=== PATIENT | male | born 1960 | race Caucasian/White ===

== ENCOUNTER 2017-06-07 09:53 | Emergency (ER) | payer BC ==
--- NOTE | 2017-06-07 10:18 | EDM.PDOC ---
ED HPI GENERAL MEDICAL PROBLEM - General Chief Complaint: Lower Extremity Injury/Pain Stated Complaint: Right hip pain; right knee pain Time Seen by Provider: 06/07/17 09:56 Source of Information: Reports: Patient, Family, RN, RN Notes Reviewed History Limitations: Reports: No Limitations - History of Present Illness INITIAL COMMENTS - FREE TEXT/NARRATIVE: Patient presents to the ED at [facility] complaining of right hip pain, right lower lateral thigh pain, and right knee pain. Patient states he recently had a right NEAL on 05/31/[address] Doc Palacios. No issues with surgery. Patient was able to be discharged home with physical therapy. Patient attended his first therapy session on 06/05/2017. Patients states on that date is when his pain started. In reviewing the therapists notes, his physical therapy was uneventful and patient was able to participate in all activities. Patient denies any injury or trauma. Patient denies any numbness, tingling, or paresthesia of any extremity. Patient is able to ambulate with a walker. Onset Date: 06/05/17 Right Hip Pain Score (Numeric/FACES): 5 - Related Data Allergies Allergy/AdvReac Type Severity Reaction Status Date / Time No Known Allergies Allergy Verified 06/07/17 10:10 Home Meds: Home Meds Acetaminophen/HYDROcodone [[place] 325-5 MG] 1 tab Q4H PRN 06/07/17 [History] Review of Systems - Review of Systems Review Of Systems: See Below Constitutional: Denies: Chills, Fever, Weakness Respiratory: Denies: Shortness of Breath, Cough Cardiovascular: Denies: Chest Pain, Palpitations Musculoskeletal: Reports: Muscle Pain, Muscle Stiffness, Other (Right hip pain) Skin: Reports: No Symptoms Neurological: Reports: No Symptoms. Denies: Numbness, Paresthesia, Tingling ED EXAM, GENERAL - Physical Exam Exam: See Below Exam Limited By: No Limitations General Appearance: Alert, No Apparent Distress Respiratory/Chest: No Respiratory Distress, Lungs Clear, Normal Breath Sounds Cardiovascular: Normal Peripheral Pulses, Regular Rate, Rhythm Peripheral Pulses: 2+: Radial (L), Radial (R) Extremities: Normal Inspection, Limited Range of Motion (mild pain) Neurological: Alert, Oriented Skin Exam: Warm, Dry, Normal Color, No Rash, Wound/Incision (dressing intact, right lateral hip s/p NEAL) Course - Vital Signs Last Recorded V/S: Last Vital Signs Temp 36.8 C 06/07/17 09:53 Pulse 89 06/07/17 09:53 Resp 16 06/07/17 09:53 BP 109/80 06/07/17 09:53 Pulse Ox - Orders/Labs/Meds Orders: Active Orders 24 hr Category Date Time Status Hip Min 2V or 3V Rt [CR] Stat Exams 06/07/17 10:03 Taken Knee 1V or 2V Rt [CR] Stat Exams 06/07/17 10:04 Taken - Radiology Interpretation Free Text/Narrative:: Hip Right 2-3V: No plain film evidence of loosening Knee Right 1-2V: Chronic patellar tendinitis See scanned reports in EMR Departure - Departure Time of Disposition: 11:27 Disposition: Home, Self-Care 01 Condition: Good Clinical Impression: Right hip pain, Status post total hip replacement, right - Discharge Information Instructions: Hip Pain, Total Hip Replacement Referrals: [Ordering Only Provider] - Forms: ED Department Discharge Additional Instructions: 1. Stay well hydrated and rest 2. Use pain medications as needed 3. Continue with physical therapy 4. Call your surgeon for any problems 5. Xray were all normal - Problem List Review Problem List Initiated/Reviewed/Updated: Yes - My Orders Last 24 Hours: My Active Orders 06/07/17 10:03 Hip Min 2V or 3V Rt [CR] Stat 06/07/17 10:04 Knee 1V or 2V Rt [CR] Stat - Assessment/Plan Last 24 Hours: My Active Orders 06/07/17 10:03 Hip Min 2V or 3V Rt [CR] Stat 06/07/17 10:04 Knee 1V or 2V Rt [CR] Stat
== END 2017-06-07 11:35 | disposition home or self-care (01) ==
LOC: VM.ED 09:53
DX: M25.551 Pain in right hip (principal); G89.18 Other acute postprocedural pain; Z96.641 Presence of right artificial hip joint
CPT/HCPCS: 73560-RT; 99283

== ENCOUNTER 2018-12-01 12:29 | Emergency (ER) | payer BC ==
[2018-12-01] MEDS ORDERED: Albuterol/Ipratropium 3.0-0.5 MG/3 ML Neb Soln NEB ONE (12:35)
[2018-12-01] MEDS ORDERED: Take Home: Albuterol 6.7 GM Inhaler, 1 Inhaler Pack INH ONE (12:45)
--- NOTE | 2018-12-01 22:04 | EDM.PDOC ---
ED HPI GENERAL MEDICAL PROBLEM - General Chief Complaint: Respiratory Problem Stated Complaint: SOB Time Seen by Provider: 12/01/18 12:30 Source of Information: Reports: Patient History Limitations: Reports: No Limitations - History of Present Illness INITIAL COMMENTS - FREE TEXT/NARRATIVE: Pt. presents to ER with complaints of acute shortness of breath. Pt. states that he was working with [employer] and had a large amount of dust that he inhaled. Pt. states that once he was exposed to it, he became acutely short of breath. Denies any recent illness. No fever or chills. No chest pain. Denies any sore throat or sinus congestion. Pt. states that he has some history of asthma in the past but is not currently on any medications for it. He has been prescribed an albuterol inhaler in the past but is out. Onset: Today - Related Data Allergies Allergy/AdvReac Type Severity Reaction Status Date / Time No Known Allergies Allergy Verified 12/01/18 13:51 Home Meds: Home Meds Acetaminophen/HYDROcodone [[place] 325-5 MG] 1 tab Q4H PRN 06/07/17 [History] Past Medical History - Past Health History Medical/Surgical History: Denies Medical/Surgical History - Past Surgical History Musculoskeletal Surgical History: Reports: Hip Replacement Social & Family History - Tobacco Use Smoking Status *Q: Never Smoker Second Hand Smoke Exposure: No - Caffeine Use Caffeine Use: Reports: None - Recreational Drug Use Recreational Drug Use: No ED ROS GENERAL - Review of Systems Review Of Systems: See Below Constitutional: Reports: No Symptoms HEENT: Reports: No Symptoms Respiratory: Reports: Shortness of Breath, Wheezing, Cough Cardiovascular: Reports: No Symptoms Endocrine: Reports: No Symptoms GI/Abdominal: Reports: No Symptoms : Reports: No Symptoms Musculoskeletal: Reports: No Symptoms Skin: Reports: No Symptoms Neurological: Reports: No Symptoms Psychiatric: Reports: No Symptoms Hematologic/Lymphatic: Reports: No Symptoms Immunologic: Reports: No Symptoms ED EXAM, GENERAL - Physical Exam Exam: See Below Exam Limited By: No Limitations General Appearance: Alert, WD/WN, No Apparent Distress Throat/Mouth: Normal Inspection, Normal Lips, Normal Teeth, Normal Gums, Normal Oropharynx, Normal Voice, No Airway Compromise Head: Atraumatic, Normocephalic Respiratory/Chest: No Respiratory Distress, Lungs Clear, Normal Breath Sounds, No Accessory Muscle Use, Chest Non-Tender Cardiovascular: Normal Peripheral Pulses, Regular Rate, Rhythm, No Edema, No Gallop, No JVD, No Murmur, No Rub Extremities: Normal Inspection, Normal Range of Motion, Non-Tender, Normal Capillary Refill, No Pedal Edema Skin Exam: Warm, Dry, Intact, Normal Color, No Rash Course - Vital Signs Last Recorded V/S: Last Vital Signs Temp 36.7 C 12/01/18 12:39 Pulse 113 H 12/01/18 12:43 Resp 16 12/01/18 12:39 BP 120/84 12/01/18 12:43 Pulse Ox 95 12/01/18 12:43 - Orders/Labs/Meds Orders: Active Orders 24 hr Category Date Time Status RT Aerosol Therapy [RC] ASDIRECTED Care 12/01/18 12:50 Active Meds: Medications Discontinued Medications Generic Name Dose Route Start Last Admin Trade Name Freq PRN Reason Stop Dose Admin Albuterol 1 packet 12/01/18 12:45 12/01/18 12:51 Take Home: Albuterol 6.7 Gm, 1 Inh Pack INH 12/01/18 12:46 1 packet ONETIME ONE Administration Albuterol/Ipratropium 3 ml 12/01/18 12:35 12/01/18 12:35 Duoneb 3.0-0.5 Mg/3 Ml NEB 12/01/18 12:36 3 ml ONETIME ONE Administration - Re-Assessments/Exams Free Text/Narrative Re-Assessment/Exam: Pt. was given an albuterol nebulizer treatment and reported significant improvement in shortness of breath. Departure - Departure Time of Disposition: 12:52 Disposition: Home, Self-Care 01 Clinical Impression: Bronchospasm - Discharge Information Instructions: Bronchospasm, Adult, Albuterol inhalation aerosol Referrals: PCP,None [Primary Care Provider] - Forms: ED Department Discharge Additional Instructions: Albuterol inhaler 2 puffs every 4-6 hours as needed for cough. Rest today. Return to ER if you have increased shortness of breath. - My Orders Last 24 Hours: My Active Orders 12/01/18 12:50 RT Aerosol Therapy [RC] ASDIRECTED - Assessment/Plan Last 24 Hours: My Active Orders 12/01/18 12:50 RT Aerosol Therapy [RC] ASDIRECTED Plan: Albuterol inhaler 2 puffs every 4-6 hours as needed for cough. Rest today. Return to ER if you have increased shortness of breath.
== END 2018-12-01 12:52 | disposition home or self-care (01) ==
LOC: VM.ED 12:29
DX: J98.01 Acute bronchospasm (principal)
CPT/HCPCS: 94640; 99284; A9270; J7620-GY

== ENCOUNTER 2020-06-28 00:06 | Emergency (ER) | payer BC, OTHER ==
[2020-06-28] MEDS: cloNIDine 0.1 MG Tab PO ONE (00:35)
[2020-06-28 01:03] LABS: CHLORIDE,CL 105 mmol/L (98-107); SODIUM,NA 142 mmol/L (136-145)
[2020-06-28 01:04] LABS: ANION GAP 14.5 mmol/L (5-15)
--- NOTE | 2020-06-28 01:34 | EDM.PDOC ---
ED HPI GENERAL MEDICAL PROBLEM - General Chief Complaint: Chest Pain Stated Complaint: Chest Pain Time Seen by Provider: 06/28/20 00:15 Source of Information: Reports: Patient History Limitations: Reports: No Limitations - History of Present Illness INITIAL COMMENTS - FREE TEXT/NARRATIVE: Was into the emergency room with complaint of a rapid heart rate. Patient states been under a lot of stress at home in the last couple weeks and noticed that he has had some muscle tension in his upper shoulder region. States he has not been getting adequate amount of rest or eating very well due to taking care of his who is been fairly ill the last month and has undergone a couple surgeries. Patient states tonight he just felt overwhelmed and began to have shaking episode as well as increased heart rate and racing thoughts. He states that he noticed on his watch that his heart rate had elevated and with his shaking he decided to present to the emergency department. She denies any chest pain, shortness of breath, dizziness, lightheadedness, blurred vision, abdominal pain, or peripheral edema. States has been relatively healthy and has no major concerns or complaints. He was concerned regarding his elevated heart rate and shaking of his hands. He states that as his work of breathing increase he also noticed that his hands became tingly. To arrival to emergency department he states that he was able to calm down a little bit and his heart rate was slowing down and he was able to have some of the tingly sensation dissipate. Onset: Sudden, Gradual Location: Reports: Abdomen Quality: Reports: Other Severity: Mild Improves with: Reports: Rest Worsens with: Reports: Movement Context: Reports: Other Associated Symptoms: Reports: No Other Symptoms - Related Data Allergies Allergy/AdvReac Type Severity Reaction Status Date / Time No Known Allergies Allergy Verified 12/01/18 13:51 Home Meds: Home Meds Acetaminophen/HYDROcodone [[place] 325-5 MG] 1 tab Q4H PRN 06/07/17 [History] Past Medical History - Past Health History Medical/Surgical History: Denies Medical/Surgical History - Past Surgical History Musculoskeletal Surgical History: Reports: Hip Replacement Social & Family History - Caffeine Use Caffeine Use: Reports: None ED ROS GENERAL - Review of Systems Review Of Systems: Comprehensive ROS is negative, except as noted in HPI. Constitutional: Reports: No Symptoms HEENT: Reports: No Symptoms Respiratory: Reports: No Symptoms Cardiovascular: Reports: No Symptoms Endocrine: Reports: No Symptoms GI/Abdominal: Reports: No Symptoms : Reports: No Symptoms Musculoskeletal: Reports: No Symptoms Skin: Reports: No Symptoms Neurological: Reports: No Symptoms Psychiatric: Reports: No Symptoms Hematologic/Lymphatic: Reports: No Symptoms Immunologic: Reports: No Symptoms ED EXAM, GENERAL - Physical Exam Exam: See Below Exam Limited By: No Limitations General Appearance: Alert, WD/WN, No Apparent Distress Nose: Normal Inspection, Normal Mucosa Throat/Mouth: Normal Inspection, Normal Lips, Normal Teeth, Normal Voice, No Airway Compromise Head: Atraumatic, Normocephalic Neck: Normal Inspection, Supple, Non-Tender Respiratory/Chest: No Respiratory Distress, Lungs Clear, Normal Breath Sounds, Chest Non-Tender Cardiovascular: Normal Peripheral Pulses, Regular Rate, Rhythm, No Edema GI/Abdominal: Normal Bowel Sounds, Soft, Non-Tender Back Exam: Normal Inspection, Full Range of Motion Extremities: Normal Inspection, Normal Range of Motion, Non-Tender, Normal Capillary Refill Neurological: Alert, Oriented, CN II-XII Intact, Normal Cognition Psychiatric: Normal Affect, Anxious Skin Exam: Warm, Dry, Intact, Normal Color Course - Vital Signs Last Recorded V/S: Last Vital Signs Temp Pulse Resp BP 177/108 H 06/28/20 00:35 Pulse Ox - Orders/Labs/Meds Orders: Active Orders 24 hr Category Date Time Status Chest 1V Frontal [CR] Stat Exams 06/28/20 00:28 Taken Labs: Laboratory Tests 06/28/20 06/28/20 Range/Units 00:34 00:34 WBC 9.2 (4.0-10.0) x10^3/uL RBC 5.31 (4.5-6.0) x10^6/uL Hgb 16.3 (14.0-18.0) g/dL Hct 46.3 (40.0-52.0) % MCV 87.2 (78.0-93.0) fL MCH 30.7 (26.0-32.0) pg MCHC 35.2 (32.0-36.0) g/dL RDW Coeff of Keanu 13.5 (10.0-15.0) % Plt Count 194 (130-400) x10^3/uL Add Manual Diff Yes Neutrophils % (Manual) 37 L (50-80) % Lymphocytes % (Manual) 47 (25-50) % Monocytes % (Manual) 10 (2-11) % Eosinophils % (Manual) 5 H (0-4) % Basophils % (Manual) 1 (0-1) % Platelet Estimate Adequate Sodium 142 (136-145) mmol/L Potassium 3.5 (3.5-5.1) mmol/L Chloride 105 (98-107) mmol/L Carbon Dioxide 26 (21-32) mmol/L Anion Gap 14.5 (5-15) mmol/L BUN 17 (7-18) mg/dL Creatinine 1.3 (0.70-1.30) mg/dL Est Cr Clr Drug Dosing TNP Estimated GFR (MDRD) 56 Glucose 109 H (74-106) mg/dL Calcium 8.8 (8.5-10.1) mg/dL Corrected Calcium 9.04 (8.5-10.1) mg/dL Total Bilirubin 0.5 (0.2-1.0) mg/dL AST 21 (15-37) U/L ALT 48 (16-63) U/L Alkaline Phosphatase 116 (46-116) U/L Troponin I < 0.017 (<=0.056) ng/mL Total Protein 7.3 (6.4-8.2) g/dL Albumin 3.7 (3.4-5.0) g/dL Globulin 3.6 Albumin/Globulin Ratio 1.03 Meds: Medications Discontinued Medications Generic Name Dose Route Start Last Admin Trade Name Freq PRN Reason Stop Dose Admin Clonidine HCl 0.1 mg 06/28/20 00:28 06/28/20 00:35 Catapres PO 06/28/20 00:29 0.1 mg ONETIME ONE Administration Departure - Departure Time of Disposition: 01:30 Disposition: Home, Self-Care 01 Condition: Good Clinical Impression: Anxiety attack - Discharge Information *PRESCRIPTION DRUG MONITORING PROGRAM REVIEWED*: Not Applicable *COPY OF PRESCRIPTION DRUG MONITORING REPORT IN PATIENT REBECCA: Not Applicable Instructions: Panic Attack, [id number] Referrals: Jayesh Leslie NP [Primary Care Provider] - Forms: ED Department Discharge Additional Instructions: 1. rest 2. increase your water intake 3. Continue all at home medications 4. Activity and diet as tolerated 5. Can take over the counter Tylenol for any pain or discomfort 6. Follow up with PCP if symptoms continue, return, or progress 7. Call with any questions or concerns Sepsis Event Note (ED) - Focused Exam Vital Signs: Vital Signs BP 06/28/20 00:35 177/108 H - My Orders Last 24 Hours: My Active Orders 06/28/20 00:28 Chest 1V Frontal [CR] Stat - Assessment/Plan Last 24 Hours: My Active Orders 06/28/20 00:28 Chest 1V Frontal [CR] Stat Assessment:: 1. Anxiety attack Plan: 1. Labs completed in the ER. Results reviewed with the patient 2. IV initiated in the emergency department 3. Clonidine 0.1mg PO given for anxiety. Relief noted within 20 mins and symptoms resolved by discharge 4. Chest xray completed in ER. Results reviewed with the patient 5. EKG was completed in ER. Results reviewed with the patient 6. Patient and nursing staff was updated regarding the plan of care 7. Education provided the patient regarding activity, diet, rest, [id number] medication modalities, and follow-up care was provided 8. Patient and family are agreeable to the above plan of care 9. All questions and concerns were addressed with the patient and family prior to discharge
--- NOTE | 2020-06-28 12:19 | CR ---
[id number] RAD/RAD Chest PA or AP 1V EXAM: FRONTAL CHEST INDICATION: CHEST PAIN. COMPARISON: None. DISCUSSION: Soft tissue attenuation limits assessment of the lung bases. Mild right base atelectasis with no definite infiltrates. Normal heart size. No effusions. IMPRESSION: 1. Mild right base atelectasis. Juan Manuel Gutierrez MD 06/28/20 0393 Thank you for allowing us to participate in the care of your patient.
== END 2020-06-28 01:41 | disposition home or self-care (01) ==
LOC: VM.ED 00:06
DX: F41.9 Anxiety disorder, unspecified (principal)
CPT/HCPCS: 36415; 71045; 80053; 84484; 85025; 99283; 99285-25; A9270-GY